=== PATIENT | female | born 1995 | race African-American/Black ===

== ENCOUNTER 2017-04-19 20:07 | Emergency (ER) | payer BC ==
[~2017-04-19 20:07] MED LIST: DICL75 PO
[2017-04-19 20:09] VITALS: BP 117/58; PULSE 65; RESP 16; TEMP 98.4; O2SAT 100
[2017-04-19 22:01] LABS: BLOOD, URINE NEG (NEG); COMMENT (UR) CULT NOT INDICATED; CULTURE IF INDICATED CULT NOT INDICATED; GLUCOSE,URINE NEG (NEG); KETONE, URINE NEG (NEG); MUCUS URINE FEW /lpf (OCC); NITRITE,URINE NEG (NEG); PH, URINE 5.5 (5.0-8.5); SQUAMOUS EPITHELIAL CELL URINE 1 /hpf (0-5); URINE COLOR YELLOW (YELLW/STRAW)
--- NOTE | 2017-04-19 22:44 | PD ---
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 Patient states that she's had this for 2 days. Per patient just started today. Per patient about 3 weeks ago she was seen at a different urgent care and was told that she might have a UTI and she was given 2 medications. Per patient she did not have a pelvic exam was also told that she might have Trichomonas. From what I can tell she was probably given Bactrim and Flagyl. She doesn't really know what she was given otherwise. She states that she doesn't really have pain but she feels like she still has vaginal discharge and itching. Is not really painful. Just uncomfortable. Denies any . No other medical issues. PFSH Past Medical History Medical History: Denies Significant Hx Diabetes: No Immunizations Current: Yes Influenza Vaccination: No ?: Not LMP: 04/08/17 Past Surgical History Surgical History: No Previous Surgery Social History Alcohol Use: Yes (socially) Tobacco Use: No Substance Use: No Allergies-Medications (Allergen,Severity, Reaction): Coded Allergies: No Known Allergies (Unverified , 04/19/17) Reported Meds & Prescriptions Reported Meds & Active Scripts Active Diclofenac Sodium 75 Mg Tab 75 Mg PO BID PRN Review of Systems Except as stated in HPI: all other systems reviewed are Neg Physical Exam Narrative GENERAL: SKIN: Warm and dry. HEAD: Atraumatic. Normocephalic. EYES: Pupils equal and round. No scleral icterus. No injection or drainage. ENT: No nasal bleeding or discharge. Mucous membranes pink and moist. NECK: Trachea midline. No JVD. CARDIOVASCULAR: Regular rate and rhythm. RESPIRATORY: No accessory muscle use. Clear to auscultation. Breath sounds equal bilaterally. GASTROINTESTINAL: Abdomen soft, non-tender, nondistended. Hepatic and splenic margins not palpable. Pelvic exam: vaginal irritation noted. No lymphadenopathy. No adnexal pain or mass. No cervical tenderness. Some whitish discharge noted. MUSCULOSKELETAL: Extremities without clubbing, cyanosis, or edema. No obvious deformities. Full ROM of the upper and lower extremities bilaterally. 2+ pulses. NEUROLOGICAL: Awake and alert. No obvious cranial nerve deficits. Motor grossly within normal limits. Five out of 5 muscle strength in the arms and legs. Normal speech. PSYCHIATRIC: Appropriate mood and affect; insight and judgment normal. Data Data Last Documented VS Vital Signs Date Time Temp Pulse Resp B/P Pulse Ox O2 Delivery O2 Flow Rate FiO2 04/19/17 21:21 78 18 04/19/17 20:09 98.4 117/58 100 Room Air Orders Gc And Chlamydia Pcr (04/19/17 21:18) Wet Prep Profile (04/19/17 21:18) Urinalysis - C+S If Indicated (04/19/17 21:18) Ed Urine Pregnancytest Poc (04/19/17 21:18) Azithromycin Powd Pack (Zithromax Powd P (04/19/17 23:00) Ceftriaxone Inj (Rocephin Inj) (04/19/17 23:00) Lidocaine 1% Inj (50 Ml) (Xylocaine 1% I (04/19/17 23:00) Labs Laboratory Tests Test 04/19/17 04/19/17 21:27 21:30 Urine Color YELLOW Urine Turbidity CLEAR Urine pH 5.5 Urine Specific [place] 1.023 Urine Protein TRACE mg/dL Urine Glucose (UA) NEG mg/dL Urine Ketones NEG mg/dL Urine Occult Blood NEG Urine Nitrite NEG Urine Bilirubin NEG Urine Urobilinogen LESS THAN 2.0 MG/DL Urine Leukocyte Esterase MOD Urine RBC 1 /hpf Urine WBC 1 /hpf Urine Squamous Epithelial 1 /hpf Cells Urine Mucus FEW /lpf Microscopic Urinalysis Comment CULT NOT INDICATED Clue Cells (Wet Prep) NONE SEEN Vaginal Trichomonas (Wet Prep) NONE SEEN Vaginal Yeast (Wet Prep) NONE SEEN MDM Medical Decision Making Medical Screen Exam Complete: Yes Emergency Medical Condition: Yes Medical Record Reviewed: Yes Interpretation(s) Wet prep negative. Urine shows leukerase esterase Differential Diagnosis Vaginal discharge versus UTI versus versus normal exam versus vaginitis versus ED Narrative Course 21-year-old female that presents to the ED for evaluation of vaginal discharge. Patient was properly examined and was found to have signs and symptoms consistent appears to be vaginal discharge. Unclear etiology at this time. Labs were done. Labs were essentially here negative. Patient does have some irritation in the vaginal wall and whitish discharge. Patient was treated for this at different facility. Unclear if this is just continuation of same illness or STD. This time I recommend treatment for prophylactic STD exposure. Patient was given shot of Rocephin as well as azithromycin. Patient was told to follow with PCP. See ED for any worsening symptoms. Given keflex for possible UTI. Diagnosis Primary Impression: Vaginitis Qualified Code: N76.0 - Acute vaginitis Patient Instructions: General Instructions Additional Instructions: Take medication as prescribed. Avoid any sexual intercourse for at least 2 weeks. Always use protection. See ED worsening symptoms. Med/Other Pt SpecificInfo: Prescription(s) given Scripts Cephalexin (Keflex)500 Mg Rxo482 Mg PO Q12H 10 Days Ref 0 Prov:Elena Pruett MD 04/19/17 Disposition: 01 DISCHARGE HOME Condition: Stable Jack Renteria Apr 19, 2017 22:44
[2017-04-19] MEDS ORDERED: LIDOCAINE HCL 1% 50 ML VIAL IM ONE (23:00)
[2017-04-19] MEDS ORDERED: cefTRIAXone 250 MG VIAL IM ONE (23:00)
[2017-04-19] MEDS ORDERED: AZITHROMYCIN PWD FOR SUSP 1 GM PACKET PO ONE (23:00)
[2017-04-19] MEDS ORDERED: CEPH-460 PO (23:05)
[2017-04-20 00:02] LABS: CHLAMYDIA PCR NOT DETECTED (NOT DETECT); NEISSERIA PCR NOT DETECTED (NOT DETECT)
== END 2017-04-19 23:26 | disposition home or self-care (01) ==
LOC: NEPD 20:07
DX: N76.0 Acute vaginitis (principal)
CPT/HCPCS: 81001; 84703; 87210; 87491; 87591; 96372; 99284; J0696